=== PATIENT | female | born 1970 | race Caucasian/White ===

== ENCOUNTER 2021-10-30 15:33 | Emergency (ER) | payer MEDICAID ==
[~2021-10-30] VITALS: Ht 157.5 cm; Wt 100.0 kg
[2021-10-30] MEDS ORDERED: LIDOCAINE HCL/EPINEPHRINE 1%-EPI 1:100,000 20 ML VIAL INFIL ONE (18:30)
[2021-10-30] MEDS ORDERED: AMOXICILLIN/POTASSIUM CLAVULANATE 875/125MG TAB PO ONE (18:30)
[2021-10-30] MEDS ORDERED: TETANUS, DIPHTHERIA, PERTUSSIS VAC/PF 0.5ML (>10YR OLD) IM ONE (18:30)
[2021-10-30] MEDS ORDERED: ACETAMINOPHEN 325MG TABLET PO ONE (18:30)
[2021-10-30] MEDS ORDERED: IBUPROFEN 400MG TABLET PO ONE (18:30)
[2021-10-30] MEDS ORDERED: TOPUD PO (20:31)
[2021-10-30] MEDS ORDERED: IBUP-2028 MT (20:31)
[2021-10-30] MEDS ORDERED: AMOX1TAB16 MT (20:31)
[2021-10-30 21:30] VITALS: BP 122/78
== END 2021-10-30 20:45 | disposition home or self-care (01) ==
LOC: ER 15:33
DX: S51.851A Open bite of right forearm, initial encounter (principal); W54.0XXA Bitten by dog, initial encounter; Y93.89 Activity, other specified; Y92.89 Other specified places as the place of occurrence of the external cause; Y99.8 Other external cause status; E11.9 Type 2 diabetes mellitus without complications; I10 Essential (primary) hypertension; Z98.890 Other specified postprocedural states; E05.90 Thyrotoxicosis, unspecified without thyrotoxic crisis or storm
CPT/HCPCS: 12002; 73090; 90471; 90715; 99284; J3490

== ENCOUNTER 2021-11-09 09:53 | Emergency (ER) | payer MEDICAID ==
[~2021-11-09] VITALS: Ht 157.5 cm; Wt 95.0 kg
[~2021-11-09 09:53] MED LIST: AMOX1TAB16 MT; IBUP-2028 MT; TOPUD PO
[2021-11-09 10:12] VITALS: BP 143/87
[2021-11-09] MEDS ORDERED: VANCOMYCIN 1G PREMIX 200 ML IV ONE (10:30)
[2021-11-09] MEDS ORDERED: PIPERACILLIN/TAZ 3.375G PREMIX 50 ML IV ONE (10:30)
[2021-11-09 10:55] LABS: BASOPHILS % 0.9 % (0.0-2.0); HEMATOCRIT. 41.8 % (36.0-48.0); HEMOGLOBIN. 13.7 g/dL (12.0-16.0); LYMPHOCYTES % 28.2 % (20.0-50.0); MEAN CORPUSCULAR HEMOGLOBIN 27.1 pg (28.0-32.0); MEAN CORPUSCULAR VOLUME 82.6 fL (81.0-99.0); MEAN PLATELET VOLUME 8.4 fl (7.4-10.4); MONOCYTES % 6.2 % (2.0-8.0); NEUTROPHILS % 62.7 % (40.0-76.0); PLATELET 361 x1000/uL (130-400); RED BLOOD CELL COUNT 5.06 mill/uL (4.2-5.4); RED CELL DISTRIBUTION WIDTH 15.3 % (11.6-14.6)
[2021-11-09] MEDS ORDERED: VANCOMYCIN 1,000 MG in DEXT 5% WATER 250 ML IV NR (11:00)
[2021-11-09 11:10] LABS: CHLORIDE 100 mEq/L (98-107)
[2021-11-09] MEDS ORDERED: DOXY100C5 MT (13:49)
== END 2021-11-09 15:02 | disposition home or self-care (01) ==
LOC: ER 09:53
DX: S61.551A Open bite of right wrist, initial encounter (principal); L03.113 Cellulitis of right upper limb; W54.0XXA Bitten by dog, initial encounter; E11.65 Type 2 diabetes mellitus with hyperglycemia; I10 Essential (primary) hypertension; R94.5 Abnormal results of liver function studies; Y93.89 Activity, other specified; Y92.89 Other specified places as the place of occurrence of the external cause; Z79.4 Long term (current) use of insulin
CPT/HCPCS: 36415; 80053; 82962; 85025; 87040; 87070; 87205; 96365; 96368; 99284; J2543; J3370; J7060

== ENCOUNTER 2021-11-10 09:06 | Emergency (ER) | payer MEDICAID ==
[~2021-11-10] VITALS: Ht 154.9 cm; Wt 105.0 kg
[~2021-11-10 09:06] MED LIST changes: +DOXY100C5 MT
[2021-11-10] MEDS ORDERED: IBUPROFEN 600MG TABLET PO ONE (10:00)
[2021-11-10 10:38] VITALS: BP 134/81
[2021-11-10] MEDS ORDERED: BACITRACIN 15GM TUBE TOP ONE (10:45)
[2021-11-10] MEDS ORDERED: BACITRACIN ZINC OINT UDPKT TOP ONE (11:00)
== END 2021-11-10 11:05 | disposition home or self-care (01) ==
LOC: ER 09:06
DX: Z48.00 Encounter for change or removal of nonsurgical wound dressing (principal); E11.9 Type 2 diabetes mellitus without complications; I10 Essential (primary) hypertension
CPT/HCPCS: 82962; 99282

== ENCOUNTER 2022-05-15 01:34 | Emergency (ER) | payer MEDICAID ==
[~2022-05-15] VITALS: Ht 165.1 cm; Wt 95.0 kg
[2022-05-15] MEDS ORDERED: LIDOCAINE HCL/EPINEPHRINE 1%-EPI 1:100,000 20 ML VIAL INFIL ONE (03:00)
[2022-05-15] MEDS ORDERED: CEPH250C2 MT (04:03)
[2022-05-15 04:43] VITALS: BP 121/71
== END 2022-05-15 04:57 | disposition home or self-care (01) ==
LOC: ER 01:34
DX: S01.511A Laceration without foreign body of lip, initial encounter (principal); W01.198A Fall on same level from slipping, tripping and stumbling with subsequent striking against other object, initial encounter; Y93.89 Activity, other specified; Y92.012 Bathroom of single-family (private) house as the place of occurrence of the external cause
CPT/HCPCS: 12013; 70450; 99284; J3490; Z7610

== ENCOUNTER 2022-05-21 12:32 | Emergency (ER) | payer MEDICAID ==
[~2022-05-21] VITALS: Ht 165.1 cm; Wt 98.0 kg
[~2022-05-21 12:32] MED LIST changes: +CEPH250C2 MT
[2022-05-21 12:34] VITALS: BP 131/88
== END 2022-05-21 17:00 | disposition left against medical advice (07) ==
LOC: ER 12:32
DX: Z53.21 Procedure and treatment not carried out due to patient leaving prior to being seen by health care provider (principal)

== ENCOUNTER 2022-06-13 07:33 | Emergency (ER) | payer MEDICAID ==
[~2022-06-13] VITALS: Ht 160 cm; Wt 92.0 kg
[2022-06-13 08:02] VITALS: BP 157/76
== END 2022-06-13 11:05 | disposition home or self-care (01) ==
LOC: ER 07:33
DX: S01.511D Laceration without foreign body of lip, subsequent encounter (principal); I10 Essential (primary) hypertension; E11.9 Type 2 diabetes mellitus without complications; Z48.02 Encounter for removal of sutures; Z86.39 Personal history of other endocrine, nutritional and metabolic disease; X58.XXXD Exposure to other specified factors, subsequent encounter
CPT/HCPCS: 99281